=== PATIENT | female | born 1950 | race American Indian/Alaskan Native ===

== ENCOUNTER 2016-08-21 10:40 | Emergency (ER) | payer MEDICARE ==
[2016-08-21 11:32] VITALS: BP 128/78
--- NOTE | 2016-08-21 11:56 | Emergency Department Report ---
Chief Complaint: Extremity Injury, Lower Stated Complaint: RT LEG CALF Time Seen by Provider: 08/21/16 11:42 - HPI History of Present Illness: 66-year-old female presents today with right leg pain 2 months especially behind her right knee. Positive for history of blood clots. She states that her doctor discontinued her warfarin 3 months ago. Also states that she started spitting up blood clots Salvador night. Positive for one syncopal episode Salvador night and complaining of headache post-hitting her head. Positive for nausea and chest soreness. Denies fever, chills, shortness of breath or abdominal pain. - ROS Review of Systems: Per HPI - Exam Vital Signs: Vital Signs 08/21/16 11:27 Temperature 98.1 F Pulse Rate 72 Respiratory 20 Rate Blood Pressure 128/78 O2 Sat by Pulse 100 Oximetry Physical Exam: General: 66-year-old female in no acute distress. Well-developed, well- nourished. CV: Regular rate and rhythm. Lungs: Clear to auscultation bilaterally. Neuro: Alert and oriented 3, normal gait, fluid speech, EOMs intact, normal facial sensation, strength exam 5/5 upper and lower extremities, GCS equals 15 Right LE: Positive for calf tenderness and tenderness to palpation over the posterior aspect of right leg. Peripheral pulses intact. Cap refill less than 2 seconds. MSE screening note: Focused history and physical exam performed. Due to findings the following was ordered: ED Medical Decision Making - Lab Data Result diagrams: 08/21/16 11:53 ED Disposition for MSE Condition: Stable
[2016-08-21 12:09] LABS: Basophils % (Auto) 0.9 % (0.0-1.8); Eosinophils % (Auto) 2.3 % (0.0-4.3); Hematocrit 41.1 % (30.3-42.9); Hemoglobin 13.1 gm/dl (10.1-14.3); Mean Corpuscular HGB Conc 32 % (30-34); Mean Corpuscular Hemoglobin 27 pg (28-32); Mean Corpuscular Volume 85 fl (79-97); Platelet Count 258 K/mm3 (140-440); Red Blood Count 4.82 M/mm3 (3.65-5.03); Red Cell Distribution Width 18.1 % (13.2-15.2)
[2016-08-21 12:19] LABS: INR 0.95 (0.87-1.13)
[2016-08-21 12:20] LABS: Partial Thromboplastin Time 30.9 Sec. (24.2-36.6)
[2016-08-21 12:30] LABS: BUN/Creatinine Ratio 15.83; Calcium 9.7 mg/dL (8.4-10.2); Chloride 102.3 mmol/L (98-107); Potassium 4.1 mmol/L (3.6-5.0)
--- NOTE | 2016-08-21 13:15 | Cat Scan Report ---
CT HEAD WITHOUT CONTRAST: HISTORY: Head injury, headache. Serial contiguous axial images were obtained through the cranium. Intravenous contrast material was not administered. The ventricles are normal in size and appearance. There is no mass effect or midline shift. No areas of abnormally increased or decreased attenuation are seen. No mass lesion is seen. The mastoid air cells and visualized portions of the sinuses are normal. IMPRESSION: Cranial CT scan within normal limits. No significant change since 12/30/15.
--- NOTE | 2016-08-22 13:37 | Vascular Lab Report ---
Right Lower Extremity Venous Duplex Study: Reason for Exam: Right leg pain. Comments on the Right: All veins visualized are freely compressible without evidence of internal echogenicity. Flow is spontaneous and phasic throughout. No evidence of acute or chronic thrombus is seen in any of the vessels visualized. Comments on the Left: A limited duplex study was done of the proximal veins of the left lower extremity. All veins visualized are freely compressible without evidence of internal echogenicity. Flow is spontaneous and phasic throughout. No evidence of acute or chronic thrombus is seen in any of the vessels visualized. Impression: No evidence of acute or chronic deep venous thrombosis in the right lower extremity.
== END 2016-08-21 23:45 | disposition left against medical advice (07) ==
LOC: ED 10:40
DX: M79.661 Pain in right lower leg (principal); Z53.21 Procedure and treatment not carried out due to patient leaving prior to being seen by health care provider
CPT/HCPCS: 36415; 70450; 80048; 85025; 85610; 85730

== ENCOUNTER 2020-02-12 12:23 | Emergency (ER) | payer MEDICARE ==
--- NOTE | 2020-02-12 15:46 | Event Note ---
ED Screening Note Date of service: 02/12/20 Time: 15:42 ED Screening Note: 69-year-old female presenting with swelling and pain to the right thigh. Patient also states that she passed out twice last week This initial assessment/diagnostic orders/clinical plan/treatment(s) is/are subject to change based on patients health status, clinical progression and re- assessment by fellow clinical providers in the ED. Further treatment and workup at subsequent clinical providers discretion. Patient/guardian urged not to elope from the ED as their condition may be serious if not clinically assessed and managed. Initial orders include: labs, doppler
--- NOTE | 2020-02-12 16:30 | Vascular Lab Report ---
DUPLEX DOPPLER LOWER EXTREMITY VEINS, RIGHT INDICATION / CLINICAL INFORMATION: pain thigh/ hx of dvt. TECHNIQUE: Duplex doppler imaging was performed through the veins of the right lower extremity using venous comp ression and other maneuvers. COMPARISON: None available. FINDINGS: RIGHT COMMON FEMORAL VEIN: Negative. RIGHT FEMORAL VEIN: Negative. RIGHT POPLITEAL VEIN: Negative. RIGHT CALF VEINS: Negative. ADDITIONAL FINDINGS: None. IMPRESSION: 1. No sonographic evidence for DVT in the right lower extremity. Signer Name: Daryl Vila MD Signed: 02/12/2020 4:25 PM Workstation Name: [id number]
--- NOTE | 2020-02-12 16:51 | Cat Scan Report ---
CT head/brain wo con INDICATION: Syncope. TECHNIQUE: Routine CT head without contrast. All CT scans at this location are performed using CT dos e reduction for ALARA by means of automated exposure control. COMPARISON: Head CT on 08/21/2016. FINDINGS: BRAIN / INTRACRANIAL CONTENTS: No acute hemorrhage, mass effect, midline shift, or hydrocephalus. No appreciable acute large territorial or lacunar infarct. No chronic infarct. Age-commensurate ventricu lar and cisternal/sulcal prominence. ORBITS: No significant abnormality of visualized orbits. SINUSES / MASTOIDS: No significant abnormality of visualized sinuses and mastoid air cells. ADDITIONAL FINDINGS: None. IMPRESSION: 1. No acute intracranial abnormality. Signer Name: Sebastian Ley MD Signed: 02/12/2020 4:47 PM Workstation Name: [id number]
[2020-02-12] MEDS ORDERED: ONDANSETRON 4 MG/2 ML INJ IV ONE (17:26)
[2020-02-12] MEDS ORDERED: MORPHINE 4 MG/1 ML INJ IV ONE (17:26)
[2020-02-12] MEDS ORDERED: SODIUM CHLORIDE 0.9% 1000 ML 1,000 ML IV ONE (17:26)
--- NOTE | 2020-02-12 17:31 | Emergency Department Report ---
ED Syncope HPI - General Chief Complaint: Syncope Stated Complaint: BLOOD CLOTT Time Seen by Provider: 02/12/20 17:18 - History of Present Illness Initial Comments: Patient is 69 years old female with history of hypertension and history of pulmonary embolism. Patient presented to the ER for evaluation of 1 syncopal episode today. Patient stated that she woke up and she went to the bathroom and she felt dizzy and fell. Patient stated that she did not lose her consciousness. Patient stated that she hit her head on the ground. Patient currently denying any headache, neck pain, chest pain, shortness of breath, abdominal pain. Patient is complaining of right thigh pain for the last 2 weeks. Patient also denied any fever or chills recently. No focal weakness, numbness tingling sensation or bowel or bladder incontinence. Patient was admitted to the hospital in 2016 for similar complaint and had a fall syncopal work-up including CT brain, EEG, carotid ultrasound and patient has been evaluated by neurologist and found to have no cardiac or neurological reason for syncope. Patient symptoms at that time improved with fluids. Timing/Prior Episodes: single episode today, remote history Precipitating Factors: Positive: lightheadedness Context: standing Loss of Consciousness: dazed Current Symptoms: back to normal, injury (Head.) - Related Data Allergies/Adverse Reactions: Allergies No Known Allergies Allergy (Verified 02/11/15 11:09) Home Medications: Ambulatory Orders lisinopriL [Zestril TAB] 20 mg PO QDAY 09/30/14 Capsaicin [Zostrix] 1 gm TP TID #1 cream..g. 04/14/16 HYDROcodone/APAP 7.5-325 [[place] 7.5/325] 1 each PO Q6HR PRN #15 tablet 04/14/16 Ibuprofen [Motrin] 800 mg PO Q8HR PRN #30 tablet 04/14/16 Prednisone [predniSONE 10 mg (6-Day Pack, 21 Tabs)] 10 mg PO .TAPER #1 tab.ds.pk 04/14/16 Valacyclovir HCl [Valtrex] 1,000 mg PO TID #30 tablet 04/14/16 ED Review of Systems ROS: Stated complaint: BLOOD CLOTT Other details as noted in HPI Comment: All other systems reviewed and negative Constitutional: denies: chills, fever Respiratory: denies: cough, shortness of breath, SOB with exertion, wheezing Cardiovascular: denies: chest pain, palpitations Gastrointestinal: denies: abdominal pain, nausea, vomiting Neurological: denies: headache, weakness, numbness, paresthesias, confusion, abnormal gait ED Past Medical Hx - Past Medical History Previous Medical History?: Yes Hx Hypertension: Yes Hx Deep Vein Thrombosis: Yes Hx Pulmonary Embolism: Yes Hx Arthritis: Yes Hx Kidney Stones: Yes Hx HIV: No Additional medical history: PNEUMONIA- 2014 - Surgical History Past Surgical History?: Yes Additional Surgical History: Hammer Toe surgery. HYSTERECTOMY. KIDNEY STONES REMOVED - Social History Smoking Status: Never Smoker Substance Use Type: Non Opiate Pain, Prescribed - Medications Home Medications: Home Medications Medication Instructions Recorded Confirmed Last Taken Type lisinopriL [Zestril TAB] 20 mg PO QDAY 09/30/14 12/30/15 10/27/14 History Capsaicin [Zostrix] 1 gm TP TID #1 cream..g. 04/14/16 Unknown Rx HYDROcodone/APAP 7.5-325 [I[place] 1 each PO Q6HR PRN #15 tablet 04/14/16 Unknown Rx 7.5/325] Ibuprofen [Motrin] 800 mg PO Q8HR PRN #30 tablet 04/14/16 Unknown Rx Prednisone [predniSONE 10 mg 10 mg PO .TAPER #1 tab.ds.pk 04/14/16 Unknown Rx (6-Day Pack, 21 Tabs)] Valacyclovir HCl [Valtrex] 1,000 mg PO TID #30 tablet 04/14/16 Unknown Rx ED Physical Exam - General Limitations: No Limitations General appearance: alert, in no apparent distress - Head Head exam: Present: atraumatic, normocephalic, normal inspection - Eye Eye exam: Present: normal appearance - ENT ENT exam: Present: normal exam, normal orophraynx, mucous membranes moist - Neck Neck exam: Present: normal inspection, full ROM. Absent: tenderness, meningismus - Respiratory Respiratory exam: Present: normal lung sounds bilaterally - Cardiovascular Cardiovascular Exam: Present: regular rate, normal rhythm, normal heart sounds - GI/Abdominal GI/Abdominal exam: Present: soft, normal bowel sounds. Absent: distended, tenderness, guarding, rebound, rigid, organomegaly, mass, bruit, pulsatile mass, hernia - Extremities Exam Extremities exam: Present: normal inspection, full ROM, normal capillary refill. Absent: pedal edema, calf tenderness - Back Exam Back exam: Present: normal inspection, full ROM. Absent: CVA tenderness (R), CVA tenderness (L) - Neurological Exam Neurological exam: Present: alert, oriented X3, CN II-XII intact, normal gait, reflexes normal - Psychiatric Psychiatric exam: Present: normal mood - Skin Skin exam: Present: warm, intact, normal color ED Course Vital Signs 02/12/20 02/12/20 02/12/20 13:25 16:45 16:47 Temperature 98.9 F Pulse Rate 77 71 Respiratory 18 18 Rate Blood Pressure Blood Pressure 121/76 119/67 [Right] O2 Sat by Pulse 96 95 96 Oximetry 02/12/20 02/12/20 02/12/20 16:50 17:00 17:16 Temperature Pulse Rate 70 69 69 Respiratory 11 L 10 L Rate Blood Pressure 119/67 119/67 Blood Pressure [Right] O2 Sat by Pulse 100 94 Oximetry 02/12/20 02/12/20 02/12/20 17:30 17:46 18:00 Temperature Pulse Rate 71 70 Respiratory 12 16 Rate Blood Pressure 109/51 109/51 109/51 Blood Pressure [Right] O2 Sat by Pulse 100 95 96 Oximetry 02/12/20 02/12/20 18:16 18:30 Temperature Pulse Rate Respiratory Rate Blood Pressure 109/51 137/71 Blood Pressure [Right] O2 Sat by Pulse 95 93 Oximetry ED Medical Decision Making - Lab Data Result diagrams: 02/12/20 17:17 02/12/20 17:17 - EKG Data -: EKG Interpreted by [facility] EKG shows normal: sinus rhythm Rate: normal - EKG Data Interpretation: no acute changes - Radiology Data Radiology results: report reviewed - Medical Decision Making Patient is 69 years old female with history of hypertension and history of pulmonary embolism. Patient presented to the ER for evaluation of 1 syncopal episode today. Patient stated that she woke up and she went to the bathroom and she felt dizzy and fell. Patient stated that she did not lose her consciousness. Patient stated that she hit her head on the ground. Patient currently denying any headache, neck pain, chest pain, shortness of breath, abdominal pain. Patient is complaining of right thigh pain for the last 2 weeks. Patient also denied any fever or chills recently. No focal weakness, numbness tingling sensation or bowel or bladder incontinence. Patient was admitted to the hospital in 2016 for similar complaint and had a fall syncopal work-up including CT brain, EEG, carotid ultrasound and patient has been evaluated by neurologist and found to have no cardiac or neurological reason for syncope. Patient symptoms at that time improved with fluids. Patient remained stable in the emergency room. Patient received normal saline 1 L. EKG showed sinus rhythm with no ST elevation or depression. Labs reviewed and is unremarkable including a negative troponin test. Right Doppler extremity is negative for acute finding. Patient is not experiencing any clinical symptoms of pulmonary embolism. Patient stated that she feels much better after the fluids. Patient asked for a meal tray and she ate it with no difficulties. Patient advised to follow-up with her primary care physician in the next 2 to 3 days and to return to the ER if she develop any new symptoms. Critical care attestation.: If time is entered above; I have spent that time in minutes in the direct care of this critically ill patient, excluding procedure time. ED Disposition Clinical Impression: Syncope, Head injury, Right thigh pain Disposition: DC-01 TO HOME OR SELFCARE Is pt being admited?: No Condition: Stable Instructions: Syncope (ED), Minor Head Injury (ED) Referrals: SHEBA VALLADARES MD [Primary Care Provider] - 3-5 Days
[2020-02-12 18:29] LABS: Basophils % (Auto) 0.2 % (0.0-1.8); Eosinophils # (Auto) 0.1 K/mm3 (0.0-0.4); Eosinophils % (Auto) 1.6 % (0.0-4.3); Hematocrit 40.4 % (30.3-42.9); Hemoglobin 13.4 gm/dl (10.1-14.3); Lymphocytes # (Auto) 1.8 K/mm3 (1.2-5.4); Lymphocytes % (Auto) 35.9 % (13.4-35.0); Mean Corpuscular HGB Conc 33 % (30-34); Mean Corpuscular Volume 89 fl (79-97); Monocytes # (Auto) 0.7 K/mm3 (0.0-0.8); Monocytes % (Auto) 13.9 % (0.0-7.3); Platelet Count 262 K/mm3 (140-440); Red Blood Count 4.56 M/mm3 (3.65-5.03); Red Cell Distribution Width 14.4 % (13.2-15.2)
[2020-02-12 18:36] LABS: Creatine Kinase MB 2.1 ng/mL (0.0-4.0)
[2020-02-12 18:39] LABS: Alanine Aminotransferase 15 units/L (7-56); Albumin 4.2 g/dL (3.9-5); BUN/Creatinine Ratio 24; Blood Urea Nitrogen 29 mg/dL (7-17); Calcium 9.4 mg/dL (8.4-10.2); Hemolysis Index 2
[2020-02-12 18:41] LABS: INR 0.99 (0.87-1.13)
[2020-02-12 19:55] VITALS: BP 142/86
== END 2020-02-12 19:56 | disposition home or self-care (01) ==
LOC: ED 12:23
DX: S09.90XA Unspecified injury of head, initial encounter (principal); M79.651 Pain in right thigh; R55 Syncope and collapse; I10 Essential (primary) hypertension; M13.88 Other specified arthritis, other site; Z90.710 Acquired absence of both cervix and uterus; Z86.718 Personal history of other venous thrombosis and embolism; Z79.01 Long term (current) use of anticoagulants; Z86.711 Personal history of pulmonary embolism; Z79.899 Other long term (current) drug therapy; W18.39XA Other fall on same level, initial encounter; Y93.89 Activity, other specified; Y92.89 Other specified places as the place of occurrence of the external cause; Y99.8 Other external cause status
CPT/HCPCS: 36415; 70450; 80053; 82550; 82553; 84484; 85025; 85610; 93005; 93971; 96361; 96374; 96375; 99284; J2270; J2405; J7030

== ENCOUNTER 2020-11-01 11:56 | Outpatient (CLI) | payer MEDICARE ==
--- NOTE | 2020-11-01 15:57 | Cat Scan Report ---
CT LUMBAR SPINE: 11/01/2020 INDICATION / CLINICAL INFORMATION: Back pain. COMPARISON: None available. FINDINGS: Unenhanced and enhanced CT images of the lumbar spine were obtained. Images are evaluated in the axia l, coronal, and sagittal planes. There is no evidence of acute abnormality. Mild right convex scoliosis is centered at the L2 level. There is a chronic appearing 20-30% compression deformity of the L1 vertebral body. Vertebral body he ights are otherwise well preserved. There is no abnormal contrast enhancement. LEVEL BY LEVEL ANALYSIS: L5-S1: Mild symmetric diffuse disc bulging and facet degenerative changes. L4-5: Grade 1 anterolisthesis associated with prominent facet degenerative changes and mild diffuse d isc bulging. No evidence of stenosis or nerve root compression. L3-4: Mild symmetric diffuse disc bulging and minimal facet degenerative changes, left greater than r ight. L2-3: Minimal diffuse disc bulging. L1-2: Unremarkable. PARASPINAL STRUCTURES: Unremarkable. IMPRESSION: Mild degenerative changes as described above. Mild partial compression deformity of L1, with a chronic appearance. All CT scans at this location are performed using dose reduction to ALARA by means of automated expos ure control. Signer Name: Adolfo Uriarte MD Signed: 11/01/2020 3:52 PM Workstation Name: [id number]
== END 2020-11-01 11:57 | disposition home or self-care (01) ==
LOC: CT 11:56
PROVIDERS: ATTEND Internal Medicine
DX: M51.36 Other intervertebral disc degeneration, lumbar region (principal); M47.816 Spondylosis without myelopathy or radiculopathy, lumbar region
CPT/HCPCS: 36415; 72133; 82565; 84520; Q9967